=== PATIENT | female | born 1945 | race Caucasian/White ===

== ENCOUNTER 2017-11-01 08:05 | Day surgery (SDC) | payer MEDICARE, BC ==
[2017-11-01] MEDS ORDERED: Lactated Ringers 1,000 ML IV SCH (08:15)
[2017-11-01] MEDS ORDERED: Propofol 200 MG/20 ML SDV IV ONE (09:30)
--- NOTE | 2017-11-01 10:03 | PCM.OPNOTE ---
- General Post-Op/Procedure Note Date of Surgery/Procedure: 11/01/17 Operative Procedure(s): c scope Findings: normal exam Pre Op Diagnosis: screening Post-Op Diagnosis: nl exam Anesthesia Technique: MAC Primary Surgeon: Horacio Diop Anesthesia Provider: Steve Weeks Pathology: none Complications: None Condition: Good Free Text/Narrative:: see dictation
--- NOTE | 2017-11-01 16:24 | OR ---
DATE OF OPERATION: 11/01/2017 SURGEON: Horacio Diop MD PROCEDURE PERFORMED: Colonoscopy. PREOPERATIVE DIAGNOSIS: Need for screening C-scope. POSTOPERATIVE DIAGNOSIS: Normal scope. INDICATIONS FOR PROCEDURE: This is a 72-year-old white female, who presents for screening colonoscopy. She was offered and accepted same. DESCRIPTION OF PROCEDURE: After an excellent IV sedation was administered, digital rectal exam was performed. No marked abnormality was noted. Flexible colonoscope was inserted and advanced without difficulty to the patient's cecum. The prep was excellent, and the following findings were noted: Ascending colon was unremarkable. Transverse colon was unremarkable. Descending colon was unremarkable. Sigmoid and rectum were unremarkable. Colon was deflated as the scope was removed. The patient tolerated the procedure well and was taken to recovery room in good condition. Repeat colonoscopy in 10 years on a p.r.n. basis. /[id number] AYAN/TWIN
== END 2017-11-01 11:14 | disposition home or self-care (01) ==
LOC: FB.SDS 08:05
PROVIDERS: ATTEND Surgery
DX: Z12.11 Encounter for screening for malignant neoplasm of colon (principal); I10 Essential (primary) hypertension; G60.9 Hereditary and idiopathic neuropathy, unspecified; H52.209 Unspecified astigmatism, unspecified eye; H52.00 Hypermetropia, unspecified eye; H52.4 Presbyopia; J45.909 Unspecified asthma, uncomplicated; F32.9 Major depressive disorder, single episode, unspecified; E78.5 Hyperlipidemia, unspecified; H35.039 Hypertensive retinopathy, unspecified eye; Z96.1 Presence of intraocular lens; Z88.0 Allergy status to penicillin; Z88.8 Allergy status to other drugs, medicaments and biological substances
CPT/HCPCS: 00810; 45378; J2704; J7120

== ENCOUNTER 2025-03-04 09:50 | Emergency (ER) | payer BC, MEDICARE ==
[2025-03-04] MEDS ORDERED: Sodium Chloride 0.9% 10 ML Syringe FLUSH PRN (09:53)
[2025-03-04 10:05] LABS: BASOPHILS PERCENT AUTO 0.6 % (0.2-1.5); EOSINOPHILS ABSOLUTE AUTO 0.2 x10-3/uL (0.0-0.8); EOSINOPHILS PERCENT AUTO 2.3 % (0.6-8.1); HEMATOCRIT 39.3 % (34.2-48.2); HEMOGLOBIN 13.3 g/dL (11.4-15.5); LYMPHOCYTES ABSOLUTE AUTO 3.2 x10-3/uL (1.0-4.4); LYMPHOCYTES PERCENT AUTO 41.1 % (18.4-52.1); MEAN CORPUSCULAR HEMOGLOBIN 29.2 pg (23.9-33.9); MEAN CORPUSCULAR HGB CONC 33.8 g/dL (31.9-34.8); MEAN CORPUSCULAR VOLUME 86.5 fL (76.7-100.5); MEAN PLATELET VOLUME 9.1 fL (7.1-12.4); MONOCYTES PERCENT AUTO 12.1 % (4.4-15.7); NEUTROPHILS ABSOLUTE AUTO 3.4 x10-3/uL (1.5-6.3); NEUTROPHILS PERCENT AUTO 43.9 % (30.8-76.2); PLATELET COUNT,PLT 218 x10(3)uL (151-488); RED BLOOD CELL COUNT 4.54 x10(6)uL (3.60-5.20); RED CELL DISTRIBUTION WIDTH 13.6 % (12.3-16.5); WHITE BLOOD CELL COUNT,WBC 7.8 x10-3/uL (3.0-10.3)
[2025-03-04 10:15] LABS: BLOOD UREA NITROGEN,BUN 20 mg/dL (7-18); CALCIUM 9.2 mg/dL (8.6-10.2); CARBON DIOXIDE,CO2 27 mmol/L (21-32); CHLORIDE,CL 100 mmol/L (100-110); ESTIMATED GFR 57 mL/min (>60); GLUCOSE RANDOM 153 mg/dL (80-116); POTASSIUM,K 4.1 mmol/L (3.5-5.3); SODIUM,NA 139 mmol/L (135-145)
[2025-03-04 10:21] LABS: INR 1.91 (1.00-1.24); PROTHROMBIN TIME 18.8 sec (9.0-11.1); PTT,PARTIAL THROMBOPLSTIN TIME 33.2 SECONDS (24.4-33.2)
[2025-03-04 10:22] LABS: A/G RATIO 1.2; ALANINE AMINOTRANSFERASE,ALT 35 U/L (12-36); ALKALINE PHOSPHATASE 77 IU/L (56-112); ASPARTATE AMNIOTRANSFERASE,AST 24 IU/L (5-25); BILIRUBIN TOTAL 0.5 mg/dL (0.1-1.3); PROTEIN TOTAL,TP 7.3 g/dL (6.0-8.0)
== END 2025-03-04 11:25 | disposition home or self-care (01) ==
LOC: FB.ED 09:50
DX: S06.9X9A Unspecified intracranial injury with loss of consciousness of unspecified duration, initial encounter (principal); M54.50 Low back pain, unspecified; E78.00 Pure hypercholesterolemia, unspecified; I10 Essential (primary) hypertension; J45.909 Unspecified asthma, uncomplicated; Z88.0 Allergy status to penicillin; Z79.82 Long term (current) use of aspirin; Z79.899 Other long term (current) drug therapy; W18.39XA Other fall on same level, initial encounter; Y93.89 Activity, other specified
CPT/HCPCS: 36415; 70450; 72100; 72220; 80053; 85025; 85610; 85730; 93010; 99284